=== PATIENT | male | born 1965 | race Caucasian/White ===

== ENCOUNTER 2021-03-16 11:32 | Inpatient (IN) | payer OTHER ==
[~2021-03-16] VITALS: Ht 180.3 cm; Wt 92.7 kg
[2021-03-16] MEDS ORDERED: ACETAMINOPHEN 325 MG TABLET PO PRN (12:15)
[2021-03-16] MEDS ORDERED: MAGNESIUM HYDROXIDE SUSPENSION 30 ML UDCUP PO PRN (12:15)
[2021-03-16] MEDS ORDERED: LORazepam 2 MG/ML VIAL IM ONE (12:15)
[2021-03-16] MEDS ORDERED: ONDANSETRON HCL 4 MG/2 ML VIAL IVP PRN (12:15)
[2021-03-16] MEDS ORDERED: LORazepam 2 MG/ML VIAL IVP PRN (12:15)
[2021-03-16 12:23] LABS: BASOPHILS % (AUTO) 0.2 % (0.0-2.0); EOSINOPHILS % (AUTO) 0 % (1.0-6.0); HEMOGLOBIN 12.1 g/dL (13.5-17.5); LYMPHOCYTES % (AUTO) 9.4 % (22.0-44.0); MEAN CORPUSCULAR HEMOGLOBIN 21.6 pg (26.0-34.0); MEAN CORPUSCULAR HGB CONC 30.9 G/dL (31.0-37.0); MEAN CORPUSCULAR VOLUME 70 fL (80-100); MONOCYTES # (AUTO) 0.6 K/uL (0.1-1.0); MONOCYTES % (AUTO) 5.8 % (2.0-9.0); NEUTROPHILS # (AUTO) 9.3 K/uL (1.8-7.7); NEUTROPHILS % (AUTO) 84.6 % (40.0-70.0); PLATELET COUNT (AUTO) 381 K/uL (150-450); RED BLOOD CELL COUNT(AUTO) 5.58 MIL/uL (4.50-5.90)
[2021-03-16 12:41] LABS: ANION GAP 9 mmol/L (8-16); CALCIUM, TOTAL 9.8 mg/dL (8.8-10.5); CARBON DIOXIDE 26 mmol/L (22-29); CHLORIDE 104 mmol/L (98-107); CREATININE 0.92 mg/dL (0.60-1.30); GLOMERULAR FILTR. RATE CALC > 60 mL/min (>60); GLUCOSE,RANDOM 114 mg/dL (70-110); POTASSIUM 4.1 mmol/L (3.5-5.1); SODIUM SERUM 139 mmol/L (136-145); UREA NITROGEN, BLOOD 15 mg/dL (7-18)
[2021-03-16 12:41] LABS: COVID AG,FIA SOURCE NASAL SWAB
[2021-03-16 12:46] LABS: ALANINE AMINOTRANSFERASE 34 U/L (12-78); ALBUMIN 3.9 g/dL (3.4-5.0); ALKALINE PHOSPHATASE 86 U/L (46-116); ASPARTATE AMINOTRANSFERASE 25 U/L (15-37); BILIRUBIN,TOTAL 0.4 mg/dL (0.1-1.0)
[2021-03-16] MEDS ORDERED: ONDANSETRON HCL 4 MG TABLET PO PRN (17:45)
[2021-03-16] MEDS: LORazepam 1 MG TABLET PO PRN (17:53)
[2021-03-17] MEDS: ZOLPIDEM TARTRATE 5 MG TABLET PO PRN ×2 (02:24→20:06)
[2021-03-17] MEDS: LORazepam 1 MG TABLET PO PRN ×3 (06:09→20:06)
[2021-03-17] MEDS: FAMOTIDINE 20 MG TABLET PO SCH (08:31)
[2021-03-17 08:47] VITALS: BP 136/77
[2021-03-17 09:00] VITALS: BP 136/77
[2021-03-17 11:56] VITALS: BP 140/49
[2021-03-17 15:03] VITALS: BP 121/80
[2021-03-17 19:45] VITALS: BP 133/92
[2021-03-18] VITALS: BP 141/90
[2021-03-18] MEDS: LORazepam 1 MG TABLET PO PRN (04:18)
[2021-03-18] MEDS ORDERED: INFLUENZA VIRUS VACCINE QVS 2021-22 (6MO+)/PF 60 MCG/0.5 ML SYRINGE IM. ONE (06:30)
[2021-03-18 07:24] VITALS: BP 100/69
[2021-03-18] MEDS: FAMOTIDINE 20 MG TABLET PO SCH (08:09)
[2021-03-18] MEDS ORDERED: ACET-3207 PO (10:06)
[2021-03-18] MEDS ORDERED: MOM30 PO (10:07)
[2021-03-18 10:57] LABS: AMPHET/METH SCREEN,URINE NEGATIVE (NEGATIVE); BARBITURATE SCREEN, URINE NEGATIVE (NEGATIVE); BENZODIAZEPINES SCREEN,URINE NEGATIVE (NEGATIVE); CANNABINOID SCREEN,URINE NEGATIVE (NEGATIVE); COCAINE SCREEN,URINE NEGATIVE (NEGATIVE); METHADONE SCREEN, URINE NEGATIVE (NEGATIVE); OPIATE SCREEN,URINE NEGATIVE (NEGATIVE)
[2021-03-18 10:58] LABS: PHENCYCLIDINE SCREEN,URINE NEGATIVE (NEGATIVE)
== END 2021-03-18 11:00 | DRG 897 ==
LOC: EMS 11:32 → 6N 03-17 05:16 → 6S 03-17 08:32
PROVIDERS: ADMIT Internal Medicine; ATTEND Internal Medicine
DX: F11.13 Opioid abuse with withdrawal (principal); Z20.822 Contact with and (suspected) exposure to COVID-19; F17.210 Nicotine dependence, cigarettes, uncomplicated; Z89.612 Acquired absence of left leg above knee
CPT/HCPCS: 80053; 85025; 90686; 99285; G0480; J2060

== ENCOUNTER 2021-06-11 17:30 | Inpatient (IN) | payer OTHER ==
[~2021-06-11] VITALS: Ht 175.3 cm; Wt 81.8 kg
[~2021-06-11 17:30] MED LIST: ACET-3207 PO; MOM30 PO
[2021-06-11] MEDS ORDERED: ONDANSETRON HCL 4 MG TABLET PO ONE (20:00)
[2021-06-11] MEDS ORDERED: ACETAMINOPHEN 500 MG TABLET PO ONE (20:00)
[2021-06-11 20:17] LABS: COVID AG,FIA SOURCE NASOPHARYNGEAL
[2021-06-11 20:31] LABS: BASOPHILS % (AUTO) 0.5 % (0.0-2.0); EOSINOPHILS % (AUTO) 0.3 % (1.0-6.0); HEMOGLOBIN 12.4 g/dL (13.5-17.5); LYMPHOCYTES # (AUTO) 1.1 K/uL (1.0-4.8); LYMPHOCYTES % (AUTO) 11.8 % (22.0-44.0); MEAN CORPUSCULAR HEMOGLOBIN 23.3 pg (26.0-34.0); MEAN CORPUSCULAR HGB CONC 31.8 G/dL (31.0-37.0); MEAN CORPUSCULAR VOLUME 73 fL (80-100); MONOCYTES # (AUTO) 0.7 K/uL (0.1-1.0); MONOCYTES % (AUTO) 7.2 % (2.0-9.0); NEUTROPHILS # (AUTO) 7.6 K/uL (1.8-7.7); NEUTROPHILS % (AUTO) 80.2 % (40.0-70.0); PLATELET COUNT (AUTO) 388 K/uL (150-450); RED BLOOD CELL COUNT(AUTO) 5.33 MIL/uL (4.50-5.90); RED CELL DISTRIBUTION WIDTH 18.6 % (11.5-14.5)
[2021-06-11 20:36] LABS: ANION GAP 7 mmol/L (8-16); CALCIUM, TOTAL 8.6 mg/dL (8.8-10.5); CARBON DIOXIDE 27 mmol/L (22-29); CHLORIDE 103 mmol/L (98-107); CREATININE 1.01 mg/dL (0.60-1.30); GLOMERULAR FILTR. RATE CALC > 60 mL/min (>60); GLUCOSE,RANDOM 87 mg/dL (70-110); POTASSIUM 4.6 mmol/L (3.5-5.1); SODIUM SERUM 137 mmol/L (136-145); UREA NITROGEN, BLOOD 12 mg/dL (7-18)
[2021-06-11 20:39] LABS: ALANINE AMINOTRANSFERASE 147 U/L (12-78); ALBUMIN 3.3 g/dL (3.4-5.0); ALKALINE PHOSPHATASE 60 U/L (46-116); ASPARTATE AMINOTRANSFERASE 35 U/L (15-37); BILIRUBIN,TOTAL 0.8 mg/dL (0.1-1.0); TOTAL PROTEIN, SERUM 6.9 g/dL (6.4-8.2)
[2021-06-11 21:47] LABS: AMPHET/METH SCREEN,URINE NEGATIVE (NEGATIVE); BARBITURATE SCREEN, URINE NEGATIVE (NEGATIVE); BENZODIAZEPINES SCREEN,URINE NEGATIVE (NEGATIVE); CANNABINOID SCREEN,URINE NEGATIVE (NEGATIVE); COCAINE SCREEN,URINE NEGATIVE (NEGATIVE); METHADONE SCREEN, URINE POSITIVE (NEGATIVE); OPIATE SCREEN,URINE NEGATIVE (NEGATIVE); PHENCYCLIDINE SCREEN,URINE NEGATIVE (NEGATIVE)
[2021-06-11] MEDS ORDERED: ACETAMINOPHEN 325 MG TABLET PO PRN ×2 (22:00)
[2021-06-11] MEDS ORDERED: KETOROLAC TROMETHAMINE 30 MG/ML VIAL IVP PRN (22:00)
[2021-06-11] MEDS ORDERED: 0.9% SODIUM CHLORIDE 10 ML SYRINGE IVP PRN (22:00)
[2021-06-11] MEDS ORDERED: ONDANSETRON HCL 4 MG/2 ML VIAL IVP PRN ×2 (22:00)
[2021-06-11] MEDS ORDERED: DICYCLOMINE HCL 10 MG CAPSULE PO PRN (22:15)
[2021-06-11 23:00] VITALS: BP 120/81
[2021-06-12] MEDS ORDERED: MELATONIN 3 MG TABLET PO PRN (00:45)
[2021-06-12] MEDS: HEPARIN SODIUM,PORCINE 5,000 UNITS/ML VIAL SQ SCH ×2 (01:11→08:00)
[2021-06-12] MEDS ORDERED: ALPRAZolam 0.5 MG TABLET PO ONE ×2 (12:00→14:30)
[2021-06-12 13:31] VITALS: BP 128/69
[2021-06-12] MEDS ORDERED: ALPR0.5T8 PO (14:37)
== END 2021-06-12 16:27 | DRG 897 ==
LOC: EMS 17:33 → 6S 21:00
PROVIDERS: ADMIT Internal Medicine; ATTEND Internal Medicine
DX: F11.23 Opioid dependence with withdrawal (principal); G89.29 Other chronic pain; Z20.822 Contact with and (suspected) exposure to COVID-19; F17.210 Nicotine dependence, cigarettes, uncomplicated; F41.9 Anxiety disorder, unspecified; M54.50 Low back pain, unspecified; Z89.512 Acquired absence of left leg below knee; Z89.612 Acquired absence of left leg above knee; Z79.899 Other long term (current) drug therapy
CPT/HCPCS: 80053; 85025; 99285; G0480; J1644; J1885; Q0162

== ENCOUNTER 2021-06-23 14:20 | Inpatient (IN) | payer OTHER ==
[~2021-06-23] VITALS: Ht 175.3 cm; Wt 91.0 kg
[~2021-06-23 14:20] MED LIST changes: +ALPR0.5T8 PO
[2021-06-23] MEDS ORDERED: AMIT-166 PO (16:18)
[2021-06-23 16:19] LABS: BASOPHILS % (AUTO) 0.8 % (0.0-2.0); EOSINOPHILS % (AUTO) 0 % (1.0-6.0); HEMATOCRIT 34.9 % (41-53); HEMOGLOBIN 11.2 g/dL (13.5-17.5); LYMPHOCYTES # (AUTO) 0.3 K/uL (1.0-4.8); LYMPHOCYTES % (AUTO) 1.3 % (22.0-44.0); MEAN CORPUSCULAR HGB CONC 32.1 G/dL (31.0-37.0); MEAN CORPUSCULAR VOLUME 72 fL (80-100); MONOCYTES # (AUTO) 1.1 K/uL (0.1-1.0); MONOCYTES % (AUTO) 4.4 % (2.0-9.0); NEUTROPHILS # (AUTO) 22.6 K/uL (1.8-7.7); PLATELET COUNT (AUTO) 323 K/uL (150-450); RED BLOOD CELL COUNT(AUTO) 4.87 MIL/uL (4.50-5.90); RED CELL DISTRIBUTION WIDTH 17.6 % (11.5-14.5)
[2021-06-23 16:20] LABS: NEUTROPHILS % (AUTO) 93.5 % (40.0-70.0)
[2021-06-23 16:28] LABS: ANION GAP 10 mmol/L (8-16); CALCIUM, TOTAL 8.5 mg/dL (8.8-10.5); CARBON DIOXIDE 24 mmol/L (22-29); CHLORIDE 99 mmol/L (98-107); GLOMERULAR FILTR. RATE CALC > 60 mL/min (>60); GLUCOSE,RANDOM 106 mg/dL (70-110); POTASSIUM 3.4 mmol/L (3.5-5.1); SODIUM SERUM 133 mmol/L (136-145); UREA NITROGEN, BLOOD 14 mg/dL (7-18)
[2021-06-23 16:34] LABS: ALANINE AMINOTRANSFERASE 719 U/L (12-78); ALBUMIN 2.4 g/dL (3.4-5.0); ALKALINE PHOSPHATASE 59 U/L (46-116); ASPARTATE AMINOTRANSFERASE 400 U/L (15-37); BILIRUBIN,TOTAL 0.7 mg/dL (0.1-1.0); TOTAL PROTEIN, SERUM 5.8 g/dL (6.4-8.2)
[2021-06-23] MEDS ORDERED: IOHEXOL 350 MG/ML 100 ML VIAL ONE (16:44)
[2021-06-23] MEDS ORDERED: SODIUM CHLORIDE 0.9% 100 ML ONE (16:44)
[2021-06-23] MEDS ORDERED: SODIUM CHLORIDE 0.9% 1,000 ML IV ONE ×2 (20:00→22:15)
[2021-06-23] MEDS ORDERED: PIPERACILLIN SODIUM/TAZOBACTAM 4.5 GM in DEXTROSE 5%-WATER 100 ML IV ONE (21:00)
[2021-06-23] MEDS ORDERED: VANCOMYCIN HCL 1 GM/D5% WATER 200 ML IV ONE (21:00)
[2021-06-23] MEDS ORDERED: MORPHINE SULFATE 4 MG/ML SYRINGE IVP PRN (22:00)
[2021-06-23] MEDS ORDERED: ONDANSETRON HCL 4 MG/2 ML VIAL IVP PRN (22:00)
[2021-06-23] MEDS ORDERED: POTASSIUM CHL 10 MEQ/WATER 50 ML IV PRN (22:00)
[2021-06-23] MEDS ORDERED: RINGERS LACTATED IV ONE (22:00)
[2021-06-23] MEDS ORDERED: MORPHINE SULFATE 4 MG/ML SYRINGE IVP ONE (22:15)
[2021-06-23] MEDS: HYDROmorphone 2 MG/ML VIAL IVP PRN (22:17)
[2021-06-23] MEDS ORDERED: CLINDAMYCIN 900 MG/D5% WATER 50 ML IV ONE (23:00)
[2021-06-23 23:42] VITALS: BP 121/90
[2021-06-23] MEDS: RINGERS SOLUTION,LACTATED 1,000 ML IV SCH (23:54)
[2021-06-23] MEDS: POTASSIUM CHLORIDE 20 MEQ ER TABLET PO PRN (23:55)
[2021-06-23] MEDS: HEPARIN SODIUM,PORCINE 5,000 UNITS/ML VIAL SQ SCH (23:55)
[2021-06-24] MEDS ORDERED: -PHARMACY VACCINE NOTE- MISC ONE (01:30)
[2021-06-24 02:56] VITALS: BP 95/56
[2021-06-24] MEDS ORDERED: PIPERACILLIN/TAZO 3.375 GM/D5W 50 ML IV SCH (04:00)
[2021-06-24] MEDS: HYDROmorphone 2 MG/ML VIAL IVP PRN ×5 (04:46→23:09)
[2021-06-24 06:08] VITALS: BP 99/58
[2021-06-24 07:16] LABS: BASOPHILS % (AUTO) 0.2 % (0.0-2.0); EOSINOPHILS % (AUTO) 0 % (1.0-6.0); HEMATOCRIT 30.1 % (41-53); HEMOGLOBIN 9.8 g/dL (13.5-17.5); LYMPHOCYTES # (AUTO) 0.4 K/uL (1.0-4.8); LYMPHOCYTES % (AUTO) 1.9 % (22.0-44.0); MEAN CORPUSCULAR HEMOGLOBIN 23.3 pg (26.0-34.0); MEAN CORPUSCULAR HGB CONC 32.5 G/dL (31.0-37.0); MEAN CORPUSCULAR VOLUME 72 fL (80-100); MONOCYTES # (AUTO) 1.4 K/uL (0.1-1.0); MONOCYTES % (AUTO) 6.8 % (2.0-9.0); NEUTROPHILS # (AUTO) 18.6 K/uL (1.8-7.7); PLATELET COUNT (AUTO) 290 K/uL (150-450); RED CELL DISTRIBUTION WIDTH 17.2 % (11.5-14.5)
[2021-06-24] MEDS: RINGERS SOLUTION,LACTATED 1,000 ML IV SCH (07:22)
[2021-06-24] MEDS: VANCOMYCIN HCL 1.25 GM in DEXTROSE 5%-WATER 250 ML IV SCH ×2 (07:22→21:53)
[2021-06-24 07:23] LABS: NEUTROPHILS % (AUTO) 91.1 % (40.0-70.0)
[2021-06-24] MEDS: HEPARIN SODIUM,PORCINE 5,000 UNITS/ML VIAL SQ SCH ×2 (07:23→17:44)
[2021-06-24 07:26] LABS: ANION GAP 7 mmol/L (8-16); CALCIUM, TOTAL 7.9 mg/dL (8.8-10.5); CARBON DIOXIDE 25 mmol/L (22-29); CHLORIDE 99 mmol/L (98-107); CREATININE 1.04 mg/dL (0.60-1.30); GLOMERULAR FILTR. RATE CALC > 60 mL/min (>60); GLUCOSE,RANDOM 121 mg/dL (70-110); POTASSIUM 3.7 mmol/L (3.5-5.1); SODIUM SERUM 131 mmol/L (136-145); UREA NITROGEN, BLOOD 11 mg/dL (7-18)
[2021-06-24 09:08] VITALS: BP 111/55
[2021-06-24] MEDS: SODIUM CHLORIDE 0.9% 1,000 ML IV SCH ×2 (13:45→21:54)
[2021-06-24] MEDS: PIPERACILLIN/TAZO 3.375 GM/D5W 50 ML IV SCH ×2 (14:00→21:53)
[2021-06-24 14:49] LABS: % IRON SATURATION 3.7 % (30-44)
[2021-06-24 20:41] VITALS: BP 92/45
[2021-06-25] MEDS: PIPERACILLIN/TAZO 3.375 GM/D5W 50 ML IV SCH ×4 (02:55→21:00)
[2021-06-25] MEDS: HYDROmorphone 2 MG/ML VIAL IVP PRN ×5 (03:02→21:00)
[2021-06-25 04:45] VITALS: BP 88/51
[2021-06-25] MEDS: SODIUM CHLORIDE 0.9% 1,000 ML IV SCH ×3 (05:59→21:05)
[2021-06-25 06:06] LABS: HEPATITIS C AB (EIA) <0.1 s/co ratio (0.0-0.9)
[2021-06-25 06:57] LABS: BASOPHILS % (AUTO) 0.2 % (0.0-2.0); EOSINOPHILS % (AUTO) 0.4 % (1.0-6.0); HEMATOCRIT 31.1 % (41-53); HEMOGLOBIN 10.3 g/dL (13.5-17.5); LYMPHOCYTES # (AUTO) 0.8 K/uL (1.0-4.8); LYMPHOCYTES % (AUTO) 4.1 % (22.0-44.0); MEAN CORPUSCULAR HEMOGLOBIN 23.7 pg (26.0-34.0); MEAN CORPUSCULAR VOLUME 72 fL (80-100); MONOCYTES # (AUTO) 1.3 K/uL (0.1-1.0); MONOCYTES % (AUTO) 7.1 % (2.0-9.0); NEUTROPHILS # (AUTO) 16.5 K/uL (1.8-7.7); PLATELET COUNT (AUTO) 287 K/uL (150-450); RED BLOOD CELL COUNT(AUTO) 4.34 MIL/uL (4.50-5.90); RED CELL DISTRIBUTION WIDTH 17.6 % (11.5-14.5)
[2021-06-25 07:15] LABS: ANION GAP 10 mmol/L (8-16); CARBON DIOXIDE 25 mmol/L (22-29); CHLORIDE 101 mmol/L (98-107); CREATININE 0.99 mg/dL (0.60-1.30); GLUCOSE,RANDOM 89 mg/dL (70-110); NEUTROPHILS % (AUTO) 88.2 % (40.0-70.0); POTASSIUM 3.8 mmol/L (3.5-5.1); SODIUM SERUM 136 mmol/L (136-145); UREA NITROGEN, BLOOD 9 mg/dL (7-18)
[2021-06-25 07:16] LABS: ALANINE AMINOTRANSFERASE 227 U/L (12-78); ALBUMIN 1.8 g/dL (3.4-5.0); ALKALINE PHOSPHATASE 77 U/L (46-116); ASPARTATE AMINOTRANSFERASE 27 U/L (15-37); BILIRUBIN,TOTAL 0.6 mg/dL (0.1-1.0); GLOMERULAR FILTR. RATE CALC > 60 mL/min (>60); TOTAL PROTEIN, SERUM 5.1 g/dL (6.4-8.2); VANCOMYCIN,RANDOM 10.9 mcg/mL (25.0-50.0)
[2021-06-25 07:39] VITALS: BP 106/20
[2021-06-25] MEDS: HEPARIN SODIUM,PORCINE 5,000 UNITS/ML VIAL SQ SCH ×3 (08:08→16:34)
[2021-06-25] MEDS: VANCOMYCIN HCL 1.25 GM in DEXTROSE 5%-WATER 250 ML IV SCH ×2 (08:08→16:34)
[2021-06-25 16:08] VITALS: BP 107/60
[2021-06-25 19:59] VITALS: BP 101/57
[2021-06-26] MEDS: VANCOMYCIN HCL 1.25 GM in DEXTROSE 5%-WATER 250 ML IV SCH ×3 (00:42→17:16)
[2021-06-26] MEDS: HYDROmorphone 2 MG/ML VIAL IVP PRN ×6 (01:18→22:17)
[2021-06-26] MEDS: PIPERACILLIN/TAZO 3.375 GM/D5W 50 ML IV SCH ×4 (02:00→20:57)
[2021-06-26] MEDS: ACETAMINOPHEN 325 MG TABLET PO PRN (03:26)
[2021-06-26 04:37] VITALS: BP 107/63
[2021-06-26] MEDS: SODIUM CHLORIDE 0.9% 1,000 ML IV SCH ×3 (05:49→20:57)
[2021-06-26] MEDS: HEPARIN SODIUM,PORCINE 5,000 UNITS/ML VIAL SQ SCH ×3 (07:49→17:16)
[2021-06-26 07:54] LABS: ANION GAP 7 mmol/L (8-16); CALCIUM, TOTAL 7.4 mg/dL (8.8-10.5); CARBON DIOXIDE 27 mmol/L (22-29); CHLORIDE 102 mmol/L (98-107); CREATININE 0.92 mg/dL (0.60-1.30); GLOMERULAR FILTR. RATE CALC > 60 mL/min (>60); GLUCOSE,RANDOM 140 mg/dL (70-110); POTASSIUM 3.5 mmol/L (3.5-5.1); SODIUM SERUM 136 mmol/L (136-145); UREA NITROGEN, BLOOD 7 mg/dL (7-18)
[2021-06-26 08:00] VITALS: BP 107/62
[2021-06-27] MEDS: PIPERACILLIN/TAZO 3.375 GM/D5W 50 ML IV SCH ×4 (01:53→19:55)
[2021-06-27] MEDS: HYDROmorphone 2 MG/ML VIAL IVP PRN ×5 (01:53→22:08)
[2021-06-27 04:53] VITALS: BP 99/56
[2021-06-27] MEDS: SODIUM CHLORIDE 0.9% 1,000 ML IV SCH ×3 (05:00→19:55)
[2021-06-27 07:09] LABS: ANION GAP 3 mmol/L (8-16); CALCIUM, TOTAL 8.2 mg/dL (8.8-10.5); CARBON DIOXIDE 27 mmol/L (22-29); CHLORIDE 104 mmol/L (98-107); CREATININE 0.79 mg/dL (0.60-1.30); GLOMERULAR FILTR. RATE CALC > 60 mL/min (>60); GLUCOSE,RANDOM 86 mg/dL (70-110); POTASSIUM 3.3 mmol/L (3.5-5.1); SODIUM SERUM 134 mmol/L (136-145); UREA NITROGEN, BLOOD 5 mg/dL (7-18); VANCOMYCIN,RANDOM 8.2 mcg/mL (25.0-50.0)
[2021-06-27] MEDS: HEPARIN SODIUM,PORCINE 5,000 UNITS/ML VIAL SQ SCH ×4 (07:33→23:56)
[2021-06-27] MEDS: POTASSIUM CHLORIDE 20 MEQ ER TABLET PO PRN ×3 (07:33→16:52)
[2021-06-27 07:48] VITALS: BP 113/66
[2021-06-27] MEDS ORDERED: SODIUM CHLORIDE 0.9% 250 ML IV ONE (08:14)
[2021-06-27] MEDS: VANCOMYCIN HCL 1.25 GM in DEXTROSE 5%-WATER 250 ML IV SCH ×4 (08:26→16:06)
[2021-06-27 12:32] LABS: BASOPHILS % (AUTO) 0.7 % (0.0-2.0); EOSINOPHILS % (AUTO) 1.9 % (1.0-6.0); HEMATOCRIT 34.9 % (41-53); HEMOGLOBIN 11.2 g/dL (13.5-17.5); LYMPHOCYTES # (AUTO) 1.1 K/uL (1.0-4.8); LYMPHOCYTES % (AUTO) 15.6 % (22.0-44.0); MEAN CORPUSCULAR HEMOGLOBIN 23.3 pg (26.0-34.0); MEAN CORPUSCULAR HGB CONC 32.3 G/dL (31.0-37.0); MEAN CORPUSCULAR VOLUME 72 fL (80-100); MONOCYTES # (AUTO) 0.6 K/uL (0.1-1.0); MONOCYTES % (AUTO) 8.6 % (2.0-9.0); NEUTROPHILS # (AUTO) 5.2 K/uL (1.8-7.7); NEUTROPHILS % (AUTO) 73.2 % (40.0-70.0); PLATELET COUNT (AUTO) 332 K/uL (150-450); RED BLOOD CELL COUNT(AUTO) 4.83 MIL/uL (4.50-5.90); RED CELL DISTRIBUTION WIDTH 17.7 % (11.5-14.5)
[2021-06-27 19:25] VITALS: BP 114/67
[2021-06-27] MEDS ORDERED: LOPERAMIDE HCL 2 MG CAPSULE PO ONE (19:45)
[2021-06-27] MEDS: HYDROCODONE/ACETAMINOPHEN 10-325 MG TABLET PO PRN (19:54)
[2021-06-27 21:12] VITALS: BP 114/67
[2021-06-27 22:51] LABS: C.DIFF GDH ANTIGEN, Stool Negative (Negative); C.DIFF TOXINS A&B, Stool Negative (Negative)
[2021-06-27] MEDS ORDERED: SODIUM CHLORIDE 0.9% 100 ML ONE (23:23)
[2021-06-27] MEDS ORDERED: IOHEXOL 350 MG/ML 100 ML VIAL ONE (23:23)
[2021-06-27] MEDS ORDERED: DEXTROSE 5%-0.45% SODIUM CHL 1,000 ML IV SCH (23:30)
[2021-06-28 00:16] LABS: INR 1.1 (0.9-1.1)
[2021-06-28] MEDS: VANCOMYCIN HCL 1.25 GM in DEXTROSE 5%-WATER 250 ML IV SCH ×4 (00:52→23:19)
[2021-06-28] MEDS: PIPERACILLIN/TAZO 3.375 GM/D5W 50 ML IV SCH ×3 (01:37→20:07)
[2021-06-28] MEDS: HYDROmorphone 2 MG/ML VIAL IVP PRN ×4 (03:04→23:19)
[2021-06-28] MEDS: SODIUM CHLORIDE 0.9% 1,000 ML IV SCH ×2 (03:20→13:45)
[2021-06-28] MEDS: LOPERAMIDE HCL 2 MG CAPSULE PO PRN ×2 (03:23→20:07)
[2021-06-28 04:27] VITALS: BP 109/76
[2021-06-28] MEDS: HYDROCODONE/ACETAMINOPHEN 10-325 MG TABLET PO PRN (06:23)
[2021-06-28 07:50] LABS: BASOPHILS % (AUTO) 1.1 % (0.0-2.0); EOSINOPHILS % (AUTO) 3.1 % (1.0-6.0); HEMATOCRIT 33.5 % (41-53); LYMPHOCYTES # (AUTO) 0.9 K/uL (1.0-4.8); MEAN CORPUSCULAR HEMOGLOBIN 23.5 pg (26.0-34.0); MEAN CORPUSCULAR HGB CONC 32.9 G/dL (31.0-37.0); MEAN CORPUSCULAR VOLUME 71 fL (80-100); MONOCYTES # (AUTO) 0.6 K/uL (0.1-1.0); MONOCYTES % (AUTO) 9.3 % (2.0-9.0); NEUTROPHILS % (AUTO) 73.5 % (40.0-70.0); PLATELET COUNT (AUTO) 386 K/uL (150-450); RED BLOOD CELL COUNT(AUTO) 4.69 MIL/uL (4.50-5.90); RED CELL DISTRIBUTION WIDTH 17.6 % (11.5-14.5)
[2021-06-28] MEDS: HEPARIN SODIUM,PORCINE 5,000 UNITS/ML VIAL SQ SCH ×3 (08:00→23:23)
[2021-06-28 08:06] LABS: ALANINE AMINOTRANSFERASE 120 U/L (12-78); ALBUMIN 1.8 g/dL (3.4-5.0); ALKALINE PHOSPHATASE 39 U/L (46-116); ANION GAP 6 mmol/L (8-16); ASPARTATE AMINOTRANSFERASE 22 U/L (15-37); BILIRUBIN,TOTAL 0.3 mg/dL (0.1-1.0); CALCIUM, TOTAL 8.2 mg/dL (8.8-10.5); CARBON DIOXIDE 27 mmol/L (22-29); CHLORIDE 107 mmol/L (98-107); CREATININE 1.09 mg/dL (0.60-1.30); GLOMERULAR FILTR. RATE CALC > 60 mL/min (>60); GLUCOSE,RANDOM 88 mg/dL (70-110); POTASSIUM 3.8 mmol/L (3.5-5.1); SODIUM SERUM 140 mmol/L (136-145); TOTAL PROTEIN, SERUM 5.3 g/dL (6.4-8.2); UREA NITROGEN, BLOOD 6 mg/dL (7-18)
[2021-06-28 08:06] LABS: COVID AG,FIA SOURCE NASAL SWAB
[2021-06-28 08:38] VITALS: BP 101/63
[2021-06-28] MEDS ORDERED: FentaNYL CITRATE PF 100 MCG/2 ML VIAL IVP PRN (09:45)
[2021-06-28] MEDS ORDERED: MEPERIDINE-PF 25 MG/ML VIAL IVP PRN (09:45)
[2021-06-28] MEDS ORDERED: HYDROmorphone 2 MG/ML VIAL IVP PRN ×2 (09:45→10:00)
[2021-06-28] MEDS ORDERED: SODIUM CHLORIDE 0.9% 1,000 ML ONE (11:33)
[2021-06-28] MEDS ORDERED: BUPIVACAINE 0.25%/EPI 1:200,000/PF 10 ML VIAL SQ ONE (13:35)
[2021-06-28] MEDS ORDERED: MAGNESIUM HYDROXIDE SUSPENSION 30 ML UDCUP PO PRN (13:45)
[2021-06-28 19:18] VITALS: BP 100/53
[2021-06-28] MEDS: ALPRAZolam 0.5 MG TABLET PO SCH (20:07)
[2021-06-29] MEDS: HYDROmorphone 2 MG/ML VIAL IVP PRN ×6 (02:43→22:46)
[2021-06-29] MEDS: PIPERACILLIN/TAZO 3.375 GM/D5W 50 ML IV SCH ×4 (02:43→20:26)
[2021-06-29 04:23] VITALS: BP 108/71
[2021-06-29] MEDS ORDERED: 0.9% SODIUM CHLORIDE 10 ML VIAL IVP ONE (06:13)
[2021-06-29] MEDS ORDERED: ROCURONIUM BROMIDE 10 MG/ML 5 ML VIAL IVP ONE (06:13)
[2021-06-29] MEDS ORDERED: ONDANSETRON HCL 4 MG/2 ML VIAL IVP ONE (06:13)
[2021-06-29] MEDS ORDERED: PROPOFOL 1% 20 ML VIAL IVP ONE (06:13)
[2021-06-29] MEDS ORDERED: DEXAMETHASONE SOD PHOS 4 MG/ML VIAL IVP ONE (06:13)
[2021-06-29] MEDS ORDERED: LIDOCAINE/PF 2% 5 ML VIAL IM ONE (06:13)
[2021-06-29] MEDS ORDERED: SODIUM CHLORIDE 0.9% IRRIG BTL 1,000 ML IRRIG ONE (06:36)
[2021-06-29] MEDS ORDERED: FentaNYL CITRATE PF 100 MCG/2 ML VIAL IVP ONE (07:13)
[2021-06-29] MEDS ORDERED: HYDROmorphone 2 MG/ML VIAL IVP ONE (07:13)
[2021-06-29] MEDS ORDERED: MIDAZOLAM HCL 2 MG/2 ML VIAL IVP ONE (07:13)
[2021-06-29] MEDS: ALPRAZolam 0.5 MG TABLET PO SCH ×2 (07:39→20:27)
[2021-06-29] MEDS: HEPARIN SODIUM,PORCINE 5,000 UNITS/ML VIAL SQ SCH ×3 (07:40→20:27)
[2021-06-29] MEDS: LOPERAMIDE HCL 2 MG CAPSULE PO PRN (07:40)
[2021-06-29] MEDS: VANCOMYCIN HCL 1.25 GM in DEXTROSE 5%-WATER 250 ML IV SCH (07:43)
[2021-06-29 07:48] VITALS: BP 107/61
[2021-06-29] MEDS: OXYGEN THERAPY IH SCH ×2 (08:00→20:00)
[2021-06-29 08:23] LABS: ANION GAP 6 mmol/L (8-16); CALCIUM, TOTAL 7.7 mg/dL (8.8-10.5); CARBON DIOXIDE 28 mmol/L (22-29); CHLORIDE 106 mmol/L (98-107); GLOMERULAR FILTR. RATE CALC > 60 mL/min (>60); GLUCOSE,RANDOM 93 mg/dL (70-110); POTASSIUM 3.8 mmol/L (3.5-5.1); SODIUM SERUM 140 mmol/L (136-145); UREA NITROGEN, BLOOD 10 mg/dL (7-18)
[2021-06-29 08:39] LABS: VANCOMYCIN,RANDOM 21.7 mcg/mL (25.0-50.0)
[2021-06-29 09:30] VITALS: BP 101/57
[2021-06-29] MEDS: HYDROCODONE/ACETAMINOPHEN 10-325 MG TABLET PO PRN (09:30)
[2021-06-29 12:20] VITALS: BP 132/70
[2021-06-29 15:22] VITALS: BP 116/61
[2021-06-29 19:27] VITALS: BP 128/62
[2021-06-29] MEDS: VANCOMYCIN HCL 750 MG in DEXTROSE 5%-WATER 250 ML IV SCH (20:28)
[2021-06-30] MEDS: PIPERACILLIN/TAZO 3.375 GM/D5W 50 ML IV SCH ×4 (02:18→20:00)
[2021-06-30] MEDS: HYDROmorphone 2 MG/ML VIAL IVP PRN ×6 (03:05→23:40)
[2021-06-30 04:44] VITALS: BP 112/66
[2021-06-30] MEDS: OXYGEN THERAPY IH SCH (07:57)
[2021-06-30 08:09] VITALS: BP 109/65
[2021-06-30] MEDS: HEPARIN SODIUM,PORCINE 5,000 UNITS/ML VIAL SQ SCH ×2 (09:07→15:47)
[2021-06-30] MEDS: ALPRAZolam 0.5 MG TABLET PO SCH ×2 (09:07→20:32)
[2021-06-30] MEDS: VANCOMYCIN HCL 750 MG in DEXTROSE 5%-WATER 250 ML IV SCH ×2 (09:55→20:00)
[2021-06-30] MEDS: LOPERAMIDE HCL 2 MG CAPSULE PO PRN (10:09)
[2021-06-30 12:21] LABS: CALCIUM, TOTAL 8.4 mg/dL (8.8-10.5); CREATININE 1.61 mg/dL (0.60-1.30)
[2021-06-30] MEDS: HYDROCODONE/ACETAMINOPHEN 10-325 MG TABLET PO PRN (12:42)
[2021-06-30 16:19] VITALS: BP 107/71
[2021-06-30 19:57] VITALS: BP 103/63
[2021-07-01] MEDS: PIPERACILLIN/TAZO 3.375 GM/D5W 50 ML IV SCH ×4 (02:00→19:54)
[2021-07-01] MEDS: HYDROmorphone 2 MG/ML VIAL IVP PRN ×6 (02:41→23:24)
[2021-07-01 07:29] LABS: CALCIUM, TOTAL 8.4 mg/dL (8.8-10.5); CREATININE 1.47 mg/dL (0.60-1.30); VANCOMYCIN,RANDOM 9.9 mcg/mL (25.0-50.0)
[2021-07-01 08:20] VITALS: BP 125/62
[2021-07-01] MEDS: HEPARIN SODIUM,PORCINE 5,000 UNITS/ML VIAL SQ SCH ×3 (08:38→16:26)
[2021-07-01] MEDS: VANCOMYCIN HCL 750 MG in DEXTROSE 5%-WATER 250 ML IV SCH ×2 (08:38→19:49)
[2021-07-01] MEDS: ALPRAZolam 0.5 MG TABLET PO SCH ×2 (08:39→21:00)
[2021-07-01] MEDS: OXYGEN THERAPY IH SCH (08:40)
[2021-07-01 19:55] VITALS: BP 106/61
[2021-07-02] MEDS: PIPERACILLIN/TAZO 3.375 GM/D5W 50 ML IV SCH ×4 (02:00→19:45)
[2021-07-02] MEDS: HYDROmorphone 2 MG/ML VIAL IVP PRN ×3 (02:39→11:19)
[2021-07-02 04:20] VITALS: BP 115/66
[2021-07-02] MEDS: HEPARIN SODIUM,PORCINE 5,000 UNITS/ML VIAL SQ SCH ×3 (07:43→15:58)
[2021-07-02] MEDS: ALPRAZolam 0.5 MG TABLET PO SCH ×2 (07:44→21:19)
[2021-07-02 07:56] VITALS: BP 100/59
[2021-07-02] MEDS: OXYGEN THERAPY IH SCH (07:58)
[2021-07-02] MEDS: VANCOMYCIN HCL 750 MG in DEXTROSE 5%-WATER 250 ML IV SCH ×2 (08:45→20:21)
[2021-07-02 10:51] LABS: CALCIUM, TOTAL 8.6 mg/dL (8.8-10.5); CREATININE 1.4 mg/dL (0.60-1.30)
[2021-07-02 11:11] VITALS: BP 106/64
[2021-07-02] MEDS: HYDROCODONE/ACETAMINOPHEN 10-325 MG TABLET PO PRN ×3 (14:44→19:52)
[2021-07-02 16:09] VITALS: BP 100/60
[2021-07-02 20:10] VITALS: BP 91/52
[2021-07-02 23:00] VITALS: BP 91/52
[2021-07-03] MEDS: ACETAMINOPHEN 325 MG TABLET PO PRN (00:45)
[2021-07-03] MEDS: PIPERACILLIN/TAZO 3.375 GM/D5W 50 ML IV SCH ×2 (02:56→07:58)
[2021-07-03 05:45] VITALS: BP 90/54
[2021-07-03 07:56] VITALS: BP 115/87
[2021-07-03] MEDS: HEPARIN SODIUM,PORCINE 5,000 UNITS/ML VIAL SQ SCH ×2 (07:58)
[2021-07-03] MEDS: HYDROCODONE/ACETAMINOPHEN 10-325 MG TABLET PO PRN ×2 (07:59→12:21)
[2021-07-03] MEDS: OXYGEN THERAPY IH SCH (08:00)
[2021-07-03 08:57] LABS: CALCIUM, TOTAL 8.3 mg/dL (8.8-10.5); CREATININE 1.5 mg/dL (0.60-1.30); POTASSIUM 4.2 mmol/L (3.5-5.1); VANCOMYCIN,RANDOM 10.3 mcg/mL (25.0-50.0)
[2021-07-03] MEDS ORDERED: SULFAMETHOX/TRIMETH DS 800-160 MG/TABLET PO SCH (09:00)
[2021-07-03] MEDS ORDERED: HEPA500018 SQ (11:19)
[2021-07-03] MEDS ORDERED: SULF-261 PO (11:20)
[2021-07-03] MEDS ORDERED: HYDR-4723 PO (11:21)
[2021-07-03] MEDS ORDERED: HYDR-4072 PO ×2 (11:23→11:24)
[2021-07-03] MEDS ORDERED: LOPE2 PO (11:25)
[2021-07-03] MEDS ORDERED: ONDA-104 IVP (11:28)
== END 2021-07-03 14:40 | DRG 854 ==
LOC: EMS 14:26 → 6S 21:47
PROVIDERS: ADMIT Internal Medicine; ATTEND Internal Medicine
PROC: 0W9M0ZZ Drainage of Male Perineum, Open Approach (ICD-10-PCS; 2021-06-28)
PROC: 0DBP0ZZ Excision of Rectum, Open Approach (ICD-10-PCS; principal; 2021-06-28 13:00)
DX: A41.9 Sepsis, unspecified organism (principal); L02.215 Cutaneous abscess of perineum; L03.115 Cellulitis of right lower limb; E87.1 Hypo-osmolality and hyponatremia; L03.317 Cellulitis of buttock; K61.2 Anorectal abscess; N17.9 Acute kidney failure, unspecified; E87.6 Hypokalemia; F19.10 Other psychoactive substance abuse, uncomplicated; F17.210 Nicotine dependence, cigarettes, uncomplicated; Z20.822 Contact with and (suspected) exposure to COVID-19; R74.8 Abnormal levels of other serum enzymes; L29.9 Pruritus, unspecified; F32.A Depression, unspecified; N49.3 Fournier gangrene; N49.2 Inflammatory disorders of scrotum; Z89.612 Acquired absence of left leg above knee; Z79.899 Other long term (current) drug therapy; Z71.6 Tobacco abuse counseling
CPT/HCPCS: 72191; 73701; 76705; 76856; 76870; 80048; 80053; 80074; 80202; 82728; 83036; 83540; 83550; 83605; 83735; 84132; 84145; 85025; 85610; 87040; 87070; 87075; 87081; 87205; 87324; 87449; 88304; 97161; 99291; J1100; J1170; J1644; J2250; J2270; J2405; J2543; J2704; J3010; J3370; J3490; J7030; J7050; J7060; J7120; Q9967